=== PATIENT | male | born 1960 | race Caucasian/White ===

== ENCOUNTER 2022-10-04 21:27 | Emergency (ER) | payer OTHER, SELFPAY ==
[2022-10-04 21:28] VITALS: BP 121/75; PULSE 69; RESP 18; TEMP 36.7; O2SAT 98; BMI 24.3
--- NOTE | 2022-10-04 22:00 | EKG12_ITS ---
Test Reason : CP Blood Pressure : / mmHG Vent. Rate : 065 BPM Atrial Rate : 065 BPM P-R Int : 162 ms QRS Dur : 120 ms QT Int : 400 ms P-R-T Axes : 073 057 057 degrees QTc Int : 416 ms Normal sinus rhythm Normal ECG Confirmed by KIMBERLY HART, JUAN ALBERTO ([id number]), editorial cartoonist JANENE ALVARADO ([id number]) on 10/08/2022 12:57:48 PM Referred By: NEWTON Confirmed By:JUAN ALBERTO HARRIS MD
[2022-10-04] MEDS: Aspirin 81 MG TAB.CHEW 324 MG PO (22:10)
--- NOTE | 2022-10-04 22:10 | RAD_ITS ---
INDICATION: chest pain EXAMINATION/TECHNIQUE: X-RAY - XR Chest 1 View COMPARISON: None. FINDINGS: LINES/DEVICES: None. LUNGS: No consolidation or evidence of an effusion. No evidence of edema or a pneumothorax. MEDIASTINUM AND CARDIOVASCULAR STRUCTURES: Cardiac silhouette is normal in size and contour. Mediastinum is unremarkable. BONES AND SOFT TISSUES: No acute abnormality. RAD/Chest 1 View (Portable) IMPRESSION: No evidence of cardiopulmonary disease. Electronically Signed: Eusebio Dutta DO at 22:42 EDT ,
[2022-10-04 22:16] LABS: Absolute Lymphocyte Count 1.23 X10^3/uL (0.83-4.51); Absolute Neutrophil Count 2.3 X10^3/uL (2.0-7.7); Basophil# 0.02 X10^3/uL; Basophil% 0.5 % (0-1); Eosinophil# 0.22 X10^3/uL; Eosinophils% 5.2 % (0-5); Hematocrit 38.2 % (40-54); Hemoglobin 13.7 g/dL (13.0-16.5); Lymphocyte # 1.23 X10^3/ul (0.83-4.51); Mean Corp Hgb Conc 35.9 g/dL (32-36); Mean Corpuscular Hgb 30.8 pg (27.0-32.0); Mean Corpuscular Volume 85.8 fL (80-94); Mean Platelet Vol. 9.4 fl (6.2-12.0); Monocyte# 0.44 X10^3/uL; Monocyte% 10.4 % (0-10); NRBC Flagged by Analyzer 0 % (0-5); Neutrophil # 2.32 X10^3/uL (2.7-7.7); Neutrophil % 54.7 % (47-70); Platelet Count 186 K/mm3 (150-450); RBC Distribution Width CV 13.2 % (11.6-14.6); RBC Distribution Width SD 41.2 fl (35.1-43.9); Red Blood Count 4.45 M/mm3 (4.6-6.2); White Blood Count 4.2 K/mm3 (4.4-11.0)
[2022-10-04 22:31] LABS: Anion Gap 7 (5-15); BUN 21 mg/dL (7-18); BUN/Creat Ratio 26.1 RATIO (10-20); Calcium,Total 8.6 mg/dL (8.5-10.1); Chloride 106 mmol/L (98-107); EST Glomerular Filtration Rate 104 mL/min (>60); Est Glom Filt Rate - Afr Amer 126 mL/min (>60); Estimated Creatinine Clearance 98.19 ml/min; Glucose 90 mg/dL (74-106); Potassium 3.6 mmol/L (3.5-5.1); Sodium Level 139 mmol/L (136-145); Troponin-I HS (w/2H Reflex) 6 pg/mL (3.0-78.0)
--- NOTE | 2022-10-04 23:22 | EDS_ITS ---
HPI History of Present Illness Chief Complaint: Chest Pain Onset/Context/Timing Onset: Yesterday Activity at onset: rest Timing: Intermittent Quality: Positive for Heaviness Location: Substernal, Right Parasternal, Left Parasternal, Right Chest and Left Chest Worsened By: Nothing Relieved By: - (Cayenne pepper) Associated Symptoms: Negative for Nausea, Vomiting, Diaphoresis, Dyspnea, Cough, Fever, Lightheadedness, Acid Reflux or Palpitations Narrative Narrative: Patient presents with chest pain that began yesterday. Patient states it went away last night after eating cayenne pepper. Patient states that the pain began again tonight. Patient states tonight his pain was improved also with cayenne pepper. Patient states the pain is diffuse across his chest. Patient describes it as a heaviness. Patient states tonight it began approximately 1-1/2 hours prior to arrival when he rolled over onto his abdomen while he was in bed. Patient states it has improved tonight. Patient states nothing makes it worse. Patient denies any nausea or vomiting. Patient denies any diaphoresis or shortness of breath. Patient denies any palpitations. Patient denies any cardiac or PE risk factors. CVD Risk Factors: Negative for Hypertension, Diabetes, Hypercholesterolemia, Family History 1' </=55 or Smoking PE Risk Factors: Negative for Recent Travel/Surgery, Recent Immobilization, Prior DVT or PE, Cancer or OCP + Smoking + >/=35 PFSH PFSH Medical History no medical history no medical history Allergy/AdvReac Type Severity Reaction Status Date / Time Penicillins Allergy Mild Rash Verified 10/04/22 21:30 Surgical History no surgical history no surgical history Social History Smoking Status: Never smoker ROS ROS ED Constitutional Constitutional ED: Denies chills or fever(s) Eyes Eyes: Denies blurry vision or change in vision ENT ENT ED: Denies rhinorrhea or sore throat Cardiovascular Cardiovascular: Reports chest pain; Denies palpitations Respiratory/Chest Respiratory/Chest: Denies cough or dyspnea Gastrointestinal Gastrointestinal: Denies abdominal pain, nausea or vomiting Genitourinary Genitourinary ED: Denies dysuria or hematuria Musculoskeletal Musculoskeletal: Denies back pain or neck pain Integumentary Denies abscess or rash Neurologic Neurologic: Denies headache(s) or weakness Allergic/Immunologic Allergic/Immunologic ED: Denies mouth swelling or urticaria EXAM Physical Exam Const Vital Signs: 10/04/22 21:28 10/04/22 21:33 10/04/22 21:59 Temperature 98.0 F Temperature Source Temporal Pulse Rate 69 Respiratory Rate 18 Respiratory Effort Normal Non-Labored Blood Pressure 121/75 H Blood Pressure Mean 90 Pulse Ox 98 Oxygen Delivery Method Room Air Room Air Positive well nourished and well developed General Appearance ED: well developed and NAD HEENT normocephalic and atraumatic Eyes PERRL and EOMs intact bilaterally Neck supple and no JVD Chest Wall palpation of chest normal Resp normal respiratory effort and clear to auscultation bilaterally Effort and Inspection: Negative for respiratory distress Cardio regular rate, regular rhythm and no murmurs GI normal to inspection, nondistended, normoactive bowel sounds, soft to palpation, non-tender and non-distended Extremity normal to inspection General Extremety ED: Negative for edema or tenderness General Extremity: Negative for edema Neuro oriented x3, CN's II-XII intact bilaterally and no sensory deficits noted Sensorium / Orientation: awake and alert Motor Exam: strength 5/5 throughout Psych mental status grossly normal Heart Score History: Slightly/Non-Suspicious ECG: Normal Age: >45 - <65 years Risk Factors: No Risk Factors Troponin: </= Normal Limit Score: 1 MDM MDM MDM Narrative Medical decision making narrative: Differential diagnosis includes cardiac dysrhythmia, cardiac ischemia, pneumonia, pneumothorax, electrolyte abnormality, anxiety, GERD, and musculoskeletal pain. Patient has a Wells score of 0. Other than his age patient is PERC negative. I do not feel this is from a pulmonary embolism because of these reasons. Lab Data Attestation: I reviewed the patient's lab results. Lab results narrative: CBC was reviewed and was within normal limits. Basic metabolic profile was rev iewed and was essentially within normal limits. High-sensitivity troponin was reviewed and was normal at 6. 2-hour repeat high-sensitivity troponin was reviewed and was normal at 6. Labs: Laboratory Results - last 24 hr 10/04/22 10/05/22 22:06 00:12 WBC 4.2 L RBC 4.45 L Hgb 13.7 Hct 38.2 L MCV 85.8 MCH 30.8 MCHC 35.9 RDW Std Deviation 41.2 RDW Coeff of Renae 13.2 Plt Count 186 MPV 9.4 Immature Gran % (Auto) 0.200 Neut % (Auto) 54.7 Lymph % (Auto) 29.0 [place] % (Auto) 10.4 H Eos % (Auto) 5.2 H Baso % (Auto) 0.5 Absolute Neuts (auto) 2.3 Absolute Lymphs (auto) 1.23 Nucleated RBC % 0 Sodium 139 Potassium 3.6 Chloride 106 Carbon Dioxide 26.0 Anion Gap 7 BUN 21 H Creatinine 0.80 Estim Creat Clear Calc 98.19 Est GFR (MDRD) Af Amer 126 Est GFR (MDRD) Non-Af 104 BUN/Creatinine Ratio 26.1 H Glucose 90 Calcium 8.6 Troponin I High Sens 6 6 Radiography Chest X-Ray - ED: 1 View, Read by ED Physician, Read by Radiologist and No Acute Disease Diagnostic Testing: Clinical Impression(s) from Imaging Studies Chest X-Ray 10/04/22 22:10 IMPRESSION: No evidence of cardiopulmonary disease. Electronically Signed: Eusebio Dutta DO at 22:42 EDT , Portable 1 view chest x-ray was obtained. On my independent interpretation, lung huynh are clear. There is normal cardiac silhouette. Bony thorax is normal. There is no acute process noted. Radiologist also interpreted the x- ray and agrees. EKG Initial EKG: Attestation: I personally reviewed and interpreted this EKG as follows: Interpretation: Sinus Rhythm (65) and No Acute Injury Pattern Comments: EKG was obtained. On my independent interpretation, it showed a normal sinus rhythm with a rate of 65. NM interval, QRS interval, and QTc intervals were all normal. [place] was normal. There are no acute ST or T wave changes. Prior EKG tracings: not available for review Prior: No Prior Treatment and Re-Evaluation :: Patient was given aspirin. Patient is feeling better on reevaluation. Patient had no further episodes of chest pain here in the emergency department. Patient was advised of his findings. Patient has a HEART score of 1. Patient was advised that this is low risk for acute cardiac event. Patient was instructed to follow-up with his primary care physician in 5 to 7 days. Patient understood and was agreeable with the plan. All questions were answered. Discharge Plan Triage Chief Complaint: Chest Pain ED Provider: Mikey Ely Dx/Rx/DC Orders Clinical Impression: Chest pain of uncertain etiology Instructions: ED Chest Pain, Uncertain Cause Primary Care Provider: Care Physician,No Primary Referrals: Bertrand Zaldivar MD [Med [facility] - [facility]] - 5-7 Days Care Physician,No Primary [Primary Care Provider] - Disposition Disposition: Home, Self Care
[2022-10-05 00:09] LABS: Reflex Troponin-HS? (from REC) Y
[2022-10-05 00:42] LABS: Troponin-I HS 6 pg/mL (3.0-78.0)
[2022-10-05 01:14] VITALS: BP 115/73; PULSE 64; RESP 16; O2SAT 98
== END 2022-10-05 01:15 | disposition home or self-care (01) ==
PROVIDERS: Emergency Provider Emergency Medicine; Visit Provider Emergency Medicine
DX: R07.9 Chest pain, unspecified (principal)
CPT/HCPCS: 71045; 80048; 84484; 85025; 93005; 99284; A4216